=== PATIENT | female | born 1985 | race Caucasian/White ===

== ENCOUNTER → 2021-03-31 | Outpatient (REF) | payer BC, SELFPAY ==
[2021-03-31 13:16] LABS: Absolute Neutrophil Count 2.3 X10^3/uL (2.0-7.7); Basophil# 0.02 X10^3/uL; Basophil% 0.4 % (0-1); Eosinophil# 0.53 X10^3/uL; Eosinophils% 10.5 % (0-5); Hematocrit 41.8 % (37-47); Hemoglobin 14.2 g/dL (12.0-15.0); Lymphocyte % 35.5 % (19-41); Mean Corpuscular Hgb 31.3 pg (27.0-32.0); Mean Corpuscular Volume 92.3 fL (81-99); Monocyte# 0.39 X10^3/uL; Monocyte% 7.7 % (0-10); NRBC Flagged by Analyzer 0 % (0-5); Neutrophil # 2.32 X10^3/uL (2.7-7.7); Neutrophil % 45.7 % (47-70); Platelet Count 217 K/mm3 (150-450); RBC Distribution Width CV 12.1 % (11.6-14.6); RBC Distribution Width SD 41.6 fl (35.1-43.9); Red Blood Count 4.53 M/mm3 (4.2-5.4); White Blood Count 5.1 K/mm3 (4.4-11.0)
[2021-03-31 14:03] LABS: HIV - WCH Non-Reactive (Nonreactive); Syphilis Antibodies Non-reactive; Vitamin B12 1016 pg/mL (211-911)
[2021-03-31 14:23] LABS: ALB/GLOB Ratio 1.2 RATIO (0.9-2.4); AST(SGOT) 21 U/L (15-37); Alanine Aminotransfer ALT/SGPT 39 U/L (13-56); Albumin, Serum 3.9 g/dL (3.2-5.0); Alkaline Phosphatase 37 U/L (45-117); Anion Gap 5 (5-15); BUN 15 mg/dL (7-18); BUN/Creat Ratio 17.1 RATIO (10-20); Calcium,Total 8.8 mg/dL (8.5-10.1); Chloride 104 mmol/L (98-107); Cholesterol 281 mg/dL (200); Creatinine, Serum 0.88 mg/dL (0.55-1.02); EST Glomerular Filtration Rate 77 mL/min (>60); Est Glom Filt Rate - Afr Amer 93 mL/min (>60); Globulin 3.2 g/dL (2.2-4.2); Glucose 78 mg/dL (74-106); High Density Lipoprotein 102 mg/dL; Potassium 3.4 mmol/L (3.5-5.1); Protein, Total 7.1 g/dL (6.4-8.2); Sodium Level 138 mmol/L (136-145); Triglycerides 38 mg/dL; Very Low Density Lipoprotein 8 mg/dL (5-40)
[2021-03-31 16:06] LABS: Chlamydia Trachomatis by PCR Negative (Negative)
[2021-03-31 16:07] LABS: Neisserai gonorrhoeae by PCR Negative (Negative); Probe Check PASS; Sample Adequacy Control PASS; Specimen Processing Control PASS
[2021-04-01 21:07] LABS: HSV 1 IgG < 0.91 index (0.00-0.90); HSV 2 IgG < 0.91 index (0.00-0.90)
== END | disposition home or self-care (01) ==
LOC: LABSPEC 11:46
PROVIDERS: Visit Provider Nurse Practitioner Family
DX: R53.83 Other fatigue (principal); K55.9 Vascular disorder of intestine, unspecified; K80.70 Calculus of gallbladder and bile duct without cholecystitis without obstruction; Z91.89 Other specified personal risk factors, not elsewhere classified
CPT/HCPCS: 80053; 80061; 82607; 82746; 85025; 86695; 86696; 86703; 86780; 87491; 87591

== ENCOUNTER → 2023-08-26 | Outpatient (CLI) | payer BC, SELFPAY ==
--- OUTSIDE RECORDS SUMMARY | 2023-08-26 09:21 | XMS RPT_ITS | CCD ---
Author Name Unknown Address [address] [place] [address] Organization [facility] Care Team Providers Care Riding Teacher Name Role Phone Joyce Marin CNP Primary Care Provider DORIS PAULINO Attending Unavailable JOYCE MARIN Primary Care Unavailable Medications Completed/Discontinued Medications Medication Drug Class(es) Dates Sig (Normalized) Sig (Original) L. acidophilus/Bifid. animalis (SUPER PROBIOTIC ORAL) (1 source) L. acidophilus/B ifid. animalis (SUPER PROBIOTIC ORAL) Take 1 tablet by mouth every other day. Super 8 High Potency 0 Active Problems Active Problems Problem Classification Problem Date Documented Da te Episodic/Chronic Menstrual disorders (1 source) Disorder of menstruation; Translations: [Irregular menstruation, unspecified] Onset: 09-08-2020 09-08-2020 Chronic Other circulatory disease (1 source) Raynaud's phenomenon; Translations: [Raynaud's syndrome without gangrene] Onset: 09-08-2020 09-08-2020 Chronic Other gastrointestinal disorders (1 source) Irritable bowel syndrome; Translations: [Irritable bowel syndrome without diarrhea] Onset: 09-08-2020 09-08-2020 Chronic Other gastrointestinal disorders (1 source) 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; Translations: [Malabsorption due to intolerance, not elsewhere classified] Onset: 09-08-2020 09-08-2020 Chronic Other upper respiratory infections (1 source) Sore throat symptom; Translations: [Acute pharyngitis, unspecified] 06-16-2023 Episodic Viral infection (1 source) Viral disease; Translations: [Viral infection, unspecified] 06-16-2023 Episodic Past or Other Problems Problem Classification Problem Date Documented Da te Episodic/Chronic Conditions associated with dizziness or vertigo (1 source) Postural dizziness; Translations: [Dizziness and giddiness] Onset: 09-08-2020 09-08-2020 Episodic Headache; including migraine (1 source) Headache; Translations: [Chronic nonintractable headache] Onset: 09-08-2020 09-08-2020 Episodic Malaise and fatigue (1 source) Fatigue; Translations: [Other fatigue] Onset: 09-08-2020 09-08-2020 Episodic Other gastrointestinal disorders (1 source) Abdominal bloating; Translations: [Abdominal distension (gaseous)] Onset: 09-08-2020 09-08-2020 Episodic Other infections; including parasitic (1 source) History of herpes zoster; Translations: [Personal history of other infectious and parasitic diseases] Onset: 09-08-2020 09-08-2020 Episodic Other nervous system disorders (1 source) Impaired cognition; Translations: [Other symptoms and signs involving cognitive functions and awareness] Onset: 09-08-2020 09-08-2020 Episodic Other screening for suspected conditions (not mental disorders or infectious disease) (1 source) Serum creatinine raised; Translations: [Other specified abnormal findings of blood chemistry] Onset: 09-08-2020 09-08-2020 Episodic Other skin disorders (2 sources) H/O: skin disorder; Translations: [Personal history of diseases of the skin and subcutaneous tissue] Onset: 09-08-2020 09-08-2020 Episodic Other skin disorders (1 source) Loss of hair; Translations: [Nonscarring hair loss, unspecified] Onset: 09-08-2020 09-08-2020 Episodic Residual codes; unclassified (1 source) Insomnia; Translations: [Insomnia, unspecified] Onset: 09-08-2020 09-08-2020 Episodic Results Test Name Value Interpretation Reference Range Facil ity Vital Signs Date Time Vital Sign Value Performing Clinician Colette pollard 06-16-2023 12:04-0500 Body temperature 98.29 [degF] Doris Paulino APRN.CNP Work Phone: [facility] 06-16-2023 12:04-0500 Body weight 61.69 kg Doris Paulino APRN.CNP Work Phone: [facility] 06-16-2023 12:04-0500 Diastolic blood pressure 68 mm[Hg] Doris Paulino APRN.CNP Work Phone: [facility] 06-16-2023 12:04-0500 Heart rate 66 /min Doris Paulino ETHNOARCHAEOLOGY PROFESSOR.GARMENT MANUFACTURING SUPERVISOR Work Phone: [facility] 06-16-2023 12:04-0500 Respiratory rate 16 /min Doris Paulino ETHNOARCHAEOLOGY PROFESSOR.GARMENT MANUFACTURING SUPERVISOR Work Phone: [facility] 06-16-2023 12:04-0500 SaO2% (BldA) [Mass fraction] 98 % Doris Paulino ETHNOARCHAEOLOGY PROFESSOR.GARMENT MANUFACTURING SUPERVISOR Work Phone: [facility] 06-16-2023 12:04-0500 Systolic blood pressure 116 mm[Hg] Doris Paulino ETHNOARCHAEOLOGY PROFESSOR.GARMENT MANUFACTURING SUPERVISOR Work Phone: [facility] Encounters Encounter Date Encounter Type Care Provider Facility Start: 06-16-2023 End: 06-16-2023 ambulatory [facility] Facility:[facility] Start: 06-16-2023 End: 06-16-2023 Office outpatient visit 15 minutes Doris Paulino APRN.CARLITOS Work Phone: [facility] Procedures Date Procedure Procedure Detail Performing Clinician Start: 06-16-2023 STREP A MOLECULAR (POC) Nevaeh Perkins APRN.CNP Work Phone: Plan of Treatment Date Care Activity Detail Author Start: 03-17-2023 Influenza vaccination Influenza Vacc ine (#1) [facility] Start: 07-17-2022 Depression Assessment Depression Ass essment [facility] Start: 02-17-2014 HPV Testing HPV Testing [facility] Start: 02-17-2005 Pap Testing Pap Testing [facility] Start: 02-17-2003 Urine microalbumin profile DTa P,Tdap,Td Vaccine (1 - Tdap) [facility] Start: 02-17-2002 Hepatitis C Screening Hepatitis C Sc sabrina [facility] Start: 02-17-2002 HIV Screening HIV Screening [facility] Start: 1984 Covid-19 Vaccine (#1) Covid-19 Vacci ne (#1) [facility] Start: 1984 Hepatitis B Vaccine (1 of 3 - 3-dose series) Hepatitis B Vaccine (1 of 3 - 3-dose series) [facility] Payers Date Payer Category Payer Unknown [employer] PPO OOS [id number] 2022-Present [phone] [address] [place] [address] PPO [id number] 2022 Unknown [id number] Social History Date Type Detail Facility Tobacco smoking stat [facility] Tobacco smoking consumption unknown [facility] Start: 08-04-2020 End: 08-05-2020 History of Social function [facility] Start: 08-04-2020 End: 08-05-2020 Social connection and isolation panel [facility] Do you belong to any clubs or organizations such as amish groups, unions, fraternal or athletic groups, or school groups? Yes [facility] Are you now , , , , never or living with a partner? [facility] How often to you hav e a drink containing alcohol? Never [facility] How many standard dr inks containing alcohol do you have on a typical day? Patient refused [facility] (I/We) worried wheth er (my/our) food would run out before (I/we) got money to buy more. Never true [facility] In the past 12 month s, was there a time when you were not able to pay the mortgage or rent on time? No [facility] Start: 08-04-2020 Education 17 [facility] Start: 1985 Sex Assigned At Female [facility] Start: 08-04-2020 Gender identity Identifies as female gender (finding) [facility] Start: 08-04-2020 Sexual orientation Heterosexual (fin ding) [facility] Progress note 06-16-2023 Note Date & Type Note Facility 06-16-2023 Note HNO ID: [id number] Author: Doris Paulino APRN.GARMENT MANUFACTURING SUPERVISOR Service: ? Author Type: Nurse Practitioner Type: Progress Notes Filed: 06/16/2023 12:33 PM Note Text: Subjective HPI Nontoxic-appearing female presents urgent care chief complaint sore throat ear pain fatigue chills. Duration of symptoms 2 days. Associate symptoms listed above. Most bothersome symptom today is pharyngitis. Has not used any OTC medications recently. Sick contacts family gathering Monday. Denies any fever body aches chills productive cough chest pain shortness of breath pleuritic pain hemoptysis nausea vomiting abdominal pain change in bowel or bladder habits. Past medical history prescription medication use and allergies reviewed. .Patient presents with: Sore Throat: Ear pain, chills, and fatigue x2 days. PAST MEDICAL HISTORY Diagnosis Date Chronic nonintractable headache 09/08/2020 History of alopecia areata 09/08/2020 History of pityriasis rosea 09/08/2020 History of shingles 09/08/2020 Irritable bowel syndrome 09/08/2020 Orthostatic dizziness 09/08/2020 when stands up quickly from floor or bending over Raynaud's phenomenon without gangrene 09/08/2020 PAST SURGICAL HISTORY Procedure Laterality Date APPENDECTOMY HX 1991 ALLERGIES Patient has no known allergies. MEDICATIONS L. acidophilus/Bifid. animalis (SUPER PROBIOTIC ORAL) Take 1 tablet by mouth every other day. Super 8 High Potency [facility] [employer] Desiccated Liver capsules (750 mg) 4 every other day [facility] [employer] Epsom salt baths--1C twice weekly [facility] [employer] Vitamin D. K2 (O=5541 IU, P=762bbk)=2 drops--1000 IU 3 times per week [facility] [employer] Vitamin C (Pure Encapsulations) (190mg) 1/2 every other day (Patient not taking: Reported on 06/16/2023) [facility] [employer] Iodine via Cinda seaweed (Patient not taking: Reported on 06/16/2023) [facility] [employer] Calcium via canned fish with bones (Patient not taking: Reported on 06/16/2023) FAMILY HISTORY Problem Relation Age of Onset Ovarian cancer Mother granulosa cell tumor;15th year of remission 2020 other (juvenile rheumatoid arthritis) Sister Prostate Cancer Maternal Grandfather Breast Cancer Paternal Grandmother Alzheimer's Disease Maternal great-grandmother other (Synovial sarcoma) Paternal Aunt other (acute juvenile leukemia) Maternal cousin BP 116/68 Pulse 66 Temp 36.8 ?C (98.3 ?F) Resp 16 Wt 61.7 kg (136 lb) SpO2 98% Review of Systems Constitutional: Positive for chills and malaise/fatigue. Negative for fever. HENT: Positive for ear pain and sore throat. Negative for congestion, ear discharge and sinus pain. Eyes: Negative for blurred vision, pain, discharge and redness. Respiratory: Negative for cough, hemoptysis, sputum production, shortness of breath, wheezing and stridor. Cardiovascular: Negative for chest pain. Gastrointestinal: Negative for abdominal pain, diarrhea, nausea and vomiting. Musculoskeletal: Positive for myalgias. Skin: Negative for itching and rash. Neurological: Negative for dizziness and headaches. Objective Physical Exam Constitutional: General: She is not in acute distress. Appearance: She is not diaphoretic. HENT: Head: Normocephalic. Jaw: No trismus, tenderness, swelling or pain on movement. Right Ear: Tympanic membrane, ear canal and external ear normal. Left Ear: Tympanic membrane, ear canal and external ear normal. Nose: Nose normal. Mouth/Throat: Mouth: Mucous membranes are moist. Pharynx: Oropharynx is clear. Uvula midline. Posterior oropharyngeal erythema present. No pharyngeal swelling, oropharyngeal exudate or uvula swelling. Eyes: Conjunctiva/sclera: Conjunctivae normal. Pupils: Pupils are equal, round, and reactive to light. Cardiovascular: Rate and Rhythm: Normal rate and regular rhythm. Heart sounds: Normal heart sounds. Pulmonary: Effort: Pulmonary effort is normal. No tachypnea, accessory muscle usage or respiratory distress. Breath sounds: Normal breath sounds. No stridor. No wheezing, rhonchi or rales. Abdominal: General: There is no distension. Palpations: Abdomen is soft. Tenderness: There is no abdominal tenderness. There is no guarding or rebound. Musculoskeletal: Cervical back: Normal range of motion and neck supple. No edema, erythema, rigidity or tenderness. No pain with movement. Normal range of motion. Lymphadenopathy: Cervical: No cervical adenopathy. Skin: General: Skin is warm and dry. Neurological: Mental Status: She is alert and oriented to person, place, and time. ASSESSMENT/PLAN: 1. Sore throat - ICD9: 462, ICD10: J02.9 (primary diagnosis) - STREP A MOLECULAR (POC) 2. Viral illness - ICD9: 079.99, ICD10: B34.9 - Discussed viral etiology and rationale for treatment. - Group A strep molecular testing negative - Symptomatic treatment with prn analgesia - Suppor (more content not included)... [facility] History of Present illness Narrative 06-16-2023 Doris Paulino APRN.GARMENT MANUFACTURING SUPERVISOR - 06/16/2023 12:11 PM EST Note Date & Type Note Facility 06-16-2023 History of Presen t illness Narrative Subjective HPI Nontoxic-appearing female presents urgent care chief complaint sore throat ear pain fatigue chills. Duration of symptoms 2 days. Associate symptoms listed above. Most bothersome symptom today is pharyngitis. Has not used any OTC medications recently. Sick contacts family gathering Monday. Denies any fever body aches chills productive cough chest pain shortness of breath pleuritic pain hemoptysis nausea vomiting abdominal pain change in bowel or bladder habits. Past medical history prescription medication use and allergies reviewed. .Patient presents with: Sore Throat: Ear pain, chills, and fatigue x2 days. PAST MEDICAL HISTORY Diagnosis Date Chronic nonintractable headache 09/08/2020 History of alopecia areata 09/08/2020 History of pityriasis rosea 09/08/2020 History of shingles 09/08/2020 Irritable bowel syndrome 09/08/2020 Orthostatic dizziness 09/08/2020 when stands up quickly from floor or bending over Raynaud's phenomenon without gangrene 09/08/2020 PAST SURGICAL HISTORY Procedure Laterality Date APPENDECTOMY HX 1991 ALLERGIES Patient has no known allergies. MEDICATIONS L. acidophilus/Bifid. animalis (SUPER PROBIOTIC ORAL) Take 1 tablet by mouth every other day. Super 8 High Potency [facility] Desiccated Liver capsules (750 mg) 4 every other day [facility] [employer] Epsom salt baths--1C twice weekly [facility] Vitamin D. K2 (F=8228 IU, S=[id number])=2 drops--1000 IU 3 times per week [facility] Vitamin C (Pure Encapsulations) (190mg) 1/2 every other day (Patient not taking: Reported on 06/16/2023) [facility] Iodine via Cinda seaweed (Patient not taking: Reported on 06/16/2023) [facility] [facility] [employer] Calcium via canned fish with bones (Patient not taking: Reported on 06/16/2023) FAMILY HISTORY Problem Relation Age of Onset Ovarian cancer Mother granulosa cell tumor;15th year of remission 2020 other (juvenile rheumatoid arthritis) Sister Prostate Cancer Maternal Grandfather Breast Cancer Paternal Grandmother Alzheimer's Disease Maternal great-grandmother other (Synovial sarcoma) Paternal Aunt other (acute juvenile leukemia) Maternal cousin BP 116/68 Pulse 66 Temp 36.8 C (98.3 F) Resp 16 Wt 61.7 kg (136 lb) SpO2 98% Review of Systems Constitutional: Positive for chills and malaise/fatigue. Negative for fever. HENT: Positive for ear pain and sore throat. Negative for congestion, ear discharge and sinus pain. Eyes: Negative for blurred vision, pain, discharge and redness. Respiratory: Negative for cough, hemoptysis, sputum production, shortness of breath, wheezing and stridor. Cardiovascular: Negative for chest pain. Gastrointestinal: Negative for abdominal pain, diarrhea, nausea and vomiting. Musculoskeletal: Positive for myalgias. Skin: Negative for itching and rash. Neurological: Negative for dizziness and headaches. Objective Physical Exam Constitutional: General: She is not in acute distress. Appearance: She is not diaphoretic. HENT: Head: Normocephalic. Jaw: No trismus, tenderness, swelling or pain on movement. Right Ear: Tympanic membrane, ear canal and external ear normal. Left Ear: Tympanic membrane, ear canal and external ear normal. Nose: Nose normal. Mouth/Throat: Mouth: Mucous membranes are moist. Pharynx: Oropharynx is clear. Uvula midline. Posterior oropharyngeal erythema present. No pharyngeal swelling, oropharyngeal exudate or uvula swelling. Eyes: Conjunctiva/sclera: Conjunctivae normal. Pupils: Pupils are equal, round, and reactive to light. Cardiovascular: Rate and Rhythm: Normal rate and regular rhythm. Heart sounds: Normal heart sounds. Pulmonary: Effort: Pulmonary effort is normal. No tachypnea, accessory muscle usage or respiratory distress. Breath sounds: Normal breath sounds. No stridor. No wheezing, rhonchi or rales. Abdominal: General: There is no distension. Palpations: Abdomen is soft. Tenderness: There is no abdominal tenderness. There is no guarding or rebound. Musculoskeletal: Cervical back: Normal range of motion and neck supple. No edema, erythema, rigidity or tenderness. No pain with movement. Normal range of motion. Lymphadenopathy: Cervical: No cervical adenopathy. Skin: General: Skin is warm and dry. Neurological: Mental Status: She is alert and oriented to person, place, and time. ASSESSMENT/PLAN: 1. Sore throat - ICD9: 462, ICD10: J02.9 (primary diagnosis) - STREP A MOLECULAR (POC) 2. Viral illness - ICD9: 079.99, ICD10: B34.9 - Discussed viral etiology and rationale for treatment. - Group A strep molecular testing negative - Symptomatic treatment with prn analgesia - Supportive care with fluids and rest No evidence of bacterial infection noted on today exam. Patient was educated on supportive therapies. Patient will follow up with primary care provider as needed. Patient was instructed to immediately proceed to emergency room for any new, worsening, or symptoms lasting longer than anticipated. The patient's clinical presentation is otherwise unremarkable at this time. Based on exam and clinical finding, the patient is stable for discharge. Plan of care was discussed with patient. Patient verbalizes understanding and agrees to plan of care. This note was generated using [employer] software. It may contain errors in wording, punctuation, or spelling. Doris Paulino APRN.CARLITOS documented in this encounter [facility] Evaluation note Note Date & Type Note Facility documented in this encounter [facility] Summary Purpose Family History No Family History Records Found Advance Directives No Advanced Directives Records Found Additional Source Comments Source Comments (unrecognize d section and content) In the event this informatio n is protected by the Federal Confidentiality of Alcohol and Drug Abuse Patient Records regulations: The Federal rules restrict any use of the information to criminally investigate or prosecute any alcohol or drug abuse patient.[facility] Reason for Visit (unrecogniz ed section and content) Care Teams (unrecognized sec tion and content) INFORMATION SOURCE (unrecogn ized section and content) FOR RECORDS PERTAINING TO PATIENTS WHO ARE OR HAVE BEEN ENROLLED IN A CHEMICAL DEPENDENCY/SUBSTANCEABUSE PROGRAM, SOME INFORMATION MAY BE OMITTED. This clinical summary was aggregated from multiple sources. Caution should be exercised in using it in the provision of clinical care. This summary normalizes information from multiple sources, and as a consequence, information in this document may materially change the coding, format and clinical context of patient data. In addition, data may be omitted in some cases. CLINICAL DECISIONS SHOULD BE BASED ON THE PRIMARY CLINICAL RECORDS. [facility] [employer] [facility]. provides no warranty or guarantee of the accuracy or completeness of information in this document.
[2023-08-26 10:10] LABS: Absolute Lymphocyte Count 1.85 X10^3/uL (0.83-4.51); Absolute Neutrophil Count 2.2 X10^3/uL (2.0-7.7); Basophil# 0.02 X10^3/uL; Basophil% 0.4 % (0-1); Eosinophil# 0.06 X10^3/uL; Eosinophils% 1.3 % (0-5); Hematocrit 41.8 % (37-47); Hemoglobin 14.1 g/dL (12.0-15.0); Lymphocyte # 1.85 X10^3/ul (0.83-4.51); Lymphocyte % 41.5 % (19-41); Mean Corp Hgb Conc 33.7 g/dL (32-36); Mean Corpuscular Hgb 30.8 pg (27.0-32.0); Mean Corpuscular Volume 91.3 fL (81-99); Mean Platelet Vol. 9.9 fl (6.2-12.0); Monocyte# 0.33 X10^3/uL; Monocyte% 7.4 % (0-10); NRBC Flagged by Analyzer 0 % (0-5); Neutrophil # 2.19 X10^3/uL (2.7-7.7); Neutrophil % 49.2 % (47-70); Platelet Count 215 K/mm3 (150-450); RBC Distribution Width CV 12.7 % (11.6-14.6); RBC Distribution Width SD 42.5 fl (35.1-43.9); Red Blood Count 4.58 M/mm3 (4.2-5.4); White Blood Count 4.5 K/mm3 (4.4-11.0)
[2023-08-26 10:25] LABS: ALB/GLOB Ratio 1.3 RATIO (0.9-2.4); AST(SGOT) 21 U/L (15-37); Alanine Aminotransfer ALT/SGPT 27 U/L (13-56); Albumin, Serum 3.9 g/dL (3.2-5.0); Alkaline Phosphatase 41 U/L (45-117); Anion Gap 4 (5-15); BUN 19 mg/dL (7-18); BUN/Creat Ratio 20.9 RATIO (10-20); Chloride 107 mmol/L (98-107); Cholesterol 251 mg/dL (200); Creatinine, Serum 0.91 mg/dL (0.55-1.02); EST Glomerular Filtration Rate 73 mL/min (>60); Est Glom Filt Rate - Afr Amer 88 mL/min (>60); Ferritin 92 ng/mL (8-252); Globulin 3.1 g/dL (2.2-4.2); Glucose 77 mg/dL (74-106); High Density Lipoprotein 105 mg/dL; Iron 84 ug/dL (50-170); Potassium 3.5 mmol/L (3.5-5.1); Sodium Level 140 mmol/L (136-145); Triglycerides 39 mg/dL; Very Low Density Lipoprotein 8 mg/dL (5-40)
[2023-08-26 10:41] LABS: Hemoglobin A1c 5.3 % (3.8-5.6)
[2023-08-27 14:07] LABS: HEPATITIS B SURFACE AG Negative (Negative); HSV 1 IgG < 0.91 index (0.00-0.90); HSV 2 IgG < 0.91 index (0.00-0.90); Hep C Antibodies Non Reactive (Non Reactive); Hepatitis A IgM Antibody Negative (Negative); Hepatitis B Core AB IgM Negative (Negative)
[2023-08-28 08:55] LABS: Vitamin B12 420 pg/mL (211-911); Vitamin D,25 Hydroxy 59.5 ng/mL
== END | disposition home or self-care (01) ==
PROVIDERS: Referring Provider Nurse Practitioner Family; Visit Provider Nurse Practitioner Family
DX: R53.83 Other fatigue (principal); G47.09 Other insomnia; N92.6 Irregular menstruation, unspecified; M79.662 Pain in left lower leg; E78.49 Other hyperlipidemia; R06.00 Dyspnea, unspecified
CPT/HCPCS: 36415; 80053; 80061; 80074; 82306; 82607; 82728; 83036; 83540; 85025; 86695; 86696